=== PATIENT | male | born 1945 | race African-American/Black ===

== ENCOUNTER 2018-12-12 12:57 | Emergency (ER) | payer OTHER ==
[~2018-12-12 12:57] MED LIST: ISOVUE-370 76%-LOCM 1 ML ONE
[2018-12-12] MEDS ORDERED: Ondansetron PF 4 MG/2 ML Vial ONE (13:16)
[2018-12-12] MEDS ORDERED: Morphine 4 MG/ML VIAL ONE (13:16)
[2018-12-12 13:44] LABS: #Lymphocytes 0.7 thou/uL (1.20-3.40); #Monocytes 0.2 thou/uL (0.11-0.59); #Neutrophils 7.6 thou/uL (1.40-6.50); %Eosinophils 0.1 % (0.0-10.0); %Lymphocytes 8.6 % (21.0-51.0); %Monocytes 2.7 % (0.0-10.0); %Neutrophils 88.5 % (42.0-75.0); Hemoglobin 14.5 g/dL (14.0-18.0); Mean Corpuscular Hemoglobin 27.7 pg (27.0-31.0); Platelet Count 248 thou/uL (130-400); RBC Distribution Width 12.2 % (11.5-14.5); Red Blood Cell (RBC) Count 5.22 mill/uL (4.70-6.10); White Blood Cell (WBC) Count 8.6 thou/uL (4.8-10.8)
--- NOTE | 2018-12-12 14:00 | RAD ---
SINGLE VIEW OF THE CHEST: COMPARISON: None. HISTORY: Abdominal pain. FINDINGS: Single view of the chest shows a normal sized cardiomediastinal silhouette. There is no evidence of c onsolidation, mass, or pleural effusion. The bones are unremarkable. IMPRESSION: No evidence of acute cardiopulmonary disease. POS: [facility]
[2018-12-12 14:08] LABS: Bilirubin Negative (Negative); Blood, Urine Moderate (Negative); Clarity CLEAR (Clear); Glucose, Urine (Dipstick) >=1000 mg/dL (Negative); Leukocyte Negative (Negative); Nitrite Negative (Negative); Protein, Urine (Dipstick) 100 mg/dL (Neg-Trace); Specific Gravity, Urine 1.015 (1.002-1.036); Urobilinogen 0.2 mg/dL (0.2-1.0); pH, Urine 6.5 (5.0-9.0)
[2018-12-12 14:09] LABS: Bacteria/HPF None Seen HPF (None Seen); Hyaline Casts/LPF 0-3 HYALINE CAST LPF (0-3 Hyaline); Pathc Cast-AUWi Flag 0.14 (0-2.49); Squamous Epithelial 0-3 HPF (0-3); WBC/HPF 0-3 HPF (0-3)
[2018-12-12 14:11] LABS: ALT (SGPT) 24 U/L (8-55); AST (SGOT) 15 U/L (5-34); Albumin 4.4 g/dL (3.4-4.8); Alkaline Phosphatase 123 U/L (40-150); Anion Gap 17 mmol/L (10-20); BUN (Urea Nitrogen) 12 mg/dL (8.4-25.7); Bilirubin, Total 0.8 mg/dL (0.2-1.2); Calc. Creatinine Clearance 0 mL/min (70-130); Calcium 10.5 mg/dL (7.8-10.44); Carbon Dioxide 22 mmol/L (23-31); Chloride 101 mmol/L (98-107); Estimated GFR-MDRD 69; Globulin 3.4 g/dL (2.4-3.5); Glucose 278 mg/dL (83-110); Lipase 10 U/L (8-78); Protein, Total 7.8 g/dL (5.8-8.1); Sodium 136 mmol/L (136-145)
--- NOTE | 2018-12-12 15:31 | CT ---
CT ABDOMEN AND PELVIS WITH IV CONTRAST 12/12/13 HISTORY: Generalized abdominal pain COMPARISON: None FINDINGS: There is a lobulated exophytic heterogeneously enhancing mass with increased density peripherally and low density area centrally which could be related to areas of necrosis which involves the proximal b fátima of the stomach inferiorly. This mass measures 4.6 cm craniocaudal x 4.9 cm AP x 5.5 cm transvers e. There is a 1.2 cm low-density focus in the medial segment of the left hepatic lobe which is difficult to characterize. There is a lower density lesion within the posterior segment of the right hepatic lobe which is not characteristic of a cyst, and a metastatic lesion could not be entirely excluded. There is a small subcentimeter focus of enhancement seen within the superior aspect body of the splee n. This could potentially represent a small hemangioma but cannot be further characterized on this e xam. There is mild linear scarring present at the left lung base with atelectasis at the right lung base. No pulmonary nodule or mass is seen. The pancreas, bilateral adrenal glands, kidneys, and urinary bladder demonstrate a normal CT appearan ce. Urinary bladder has a normal CT appearance. There is a small eccentric area of increased density see n at the right posterolateral aspect of the urinary bladder which measures 12 mm. Metallic radiotherapy seeds are seen in the prostate gland. The appendix is visualized and normal in caliber. Vascular calcifications are seen in the abdominal aorta and involving the iliac arteries. A small fat-containing umbilical hernia is present. There is no evidence of lymphadenopathy, free fluid, or fluid collection seen in the abdomen or pelvi s. Vascular calcifications are seen in the abdominal aorta and involving the iliac arteries. Mild degenerative changes are seen in the spine. No lytic or sclerotic osseous lesions are present. IMPRESSION: 1. Heterogeneous exophytic mass involving the proximal body of the stomach inferiorly which may repr esent mass with necrosis. This may represent a gastrointestinal stromal tumor or less likely exophyt ic adenocarcinoma. 2. Low-density lesion in the posterior segment of the right hepatic lobe which cannot be characteriz ed as a cyst and may represent a metastatic lesion. There is an additional smaller hypodense lesion in the medial segment left hepatic lobe which may represent a small cyst. 3. Eccentric increased density lesion within the right posterolateral aspect of the urinary bladder with suggestion of associated calcification. This measures 1.2 cm. Further evaluation with cystosco py is recommended. 4. Subcentimeter small enhancing lesion in the superior aspect body of the spleen which could repres ent a small hemangioma. 5. The above findings were discussed with Dr. Espinal in the emergency department on 12/12/2018 at 1507 hours. CODE CR POS: [facility]
== END 2018-12-12 15:40 | disposition home or self-care (01) ==
LOC: ERS 12:57
DX: R19.00 Intra-abdominal and pelvic swelling, mass and lump, unspecified site (principal); R39.14 Feeling of incomplete bladder emptying; E11.9 Type 2 diabetes mellitus without complications; I10 Essential (primary) hypertension; E78.5 Hyperlipidemia, unspecified; Z79.82 Long term (current) use of aspirin; Z79.899 Other long term (current) drug therapy; Z79.891 Long term (current) use of opiate analgesic
CPT/HCPCS: 36415; 71045; 74177; 80053; 81003; 81015; 83605; 83690; 85025; 87086; 93005; 96361; 96374; 96375; J2270; J2405; Q9966